=== PATIENT | female | born 1985 | race Two or more races ===

== ENCOUNTER 2023-08-17 10:54 | Emergency (ER) | payer MEDICAID ==
[~2023-08-17] VITALS: Ht 152.4 cm; Wt 67.7 kg
[2023-08-17 11:28] VITALS: BP 128/68; PULSE 88; RESP 18; TEMP 98.5; O2SAT 97
[2023-08-17] MEDS ORDERED: AUG875T PO (13:13)
[2023-08-17] MEDS ORDERED: PRED20TA2 PO (13:13)
== END 2023-08-17 13:19 | disposition home or self-care (01) ==
LOC: ER 10:54
DX: J32.0 Chronic maxillary sinusitis (principal)
CPT/HCPCS: 70486

== ENCOUNTER 2023-12-05 16:40 | Emergency (ER) | payer MEDICAID ==
[~2023-12-05] VITALS: Ht 152.4 cm; Wt 71.0 kg
[~2023-12-05 16:40] MED LIST: AUG875T PO; PRED20TA2 PO
[2023-12-05] MEDS ORDERED: EPINEPHrine HCL 1 MG/1 ML AMP SC ONE (17:30)
[2023-12-05] MEDS ORDERED: methylPREDNISolone SOD SUCC 125 MG/2 ML VL IM ONE (17:30)
[2023-12-05 17:31] VITALS: BP 136/71; PULSE 99; RESP 18; TEMP 98.5; O2SAT 99
[2023-12-05] MEDS ORDERED: PRED20TA2 PO (17:43)
[2023-12-05] MEDS ORDERED: HYDR25CA PO (17:43)
== END 2023-12-05 17:57 | disposition home or self-care (01) ==
LOC: ER 16:40
DX: T78.40XA Allergy, unspecified, initial encounter (principal); X58.XXXA Exposure to other specified factors, initial encounter
CPT/HCPCS: 96372; 99284; J0171; J2930